=== PATIENT | female | born 1995 | race Caucasian/White ===

== ENCOUNTER 2019-03-07 08:32 | Inpatient (IN) ==
[2019-03-07 08:58] LABS: BILIRUBIN URINE NEGATIVE (NEGATIVE); BLOOD URINE 1+ (NEGATIVE); CLARITY SL. CLOUDY (CLEAR); COLOR AMBER; GLUCOSE URINE NEGATIVE (NEGATIVE); KETONE URINE 3+(Large) mg/dL (NEGATIVE); LEUKOCYTES URINE 1+ (NEGATIVE); NITRITE URINE NEGATIVE (NEGATIVE); PROTEIN URINE 2+(100 mg/dL) mg/dL (NEGATIVE); SP GRAVITY URINE 1.015; UROBILINOGEN URINE 8 mg/dL
[2019-03-07 09:03] LABS: HEMATOCRIT 34.1 % (37.0-47.0); HEMOGLOBIN 11.8 g/dL (12.0-16.0); IMM GRAN# 0.01 X1000 (0.0-0.04); IMM GRAN% 0.1 % (0.0-0.5); LYMPH# 0.45 X1000 (1.2-3.4); LYMPH% 3.6 % (20.5-51.1); MCH 28.8 PG (27-31); MCHC 34.6 g/dL (33-37); MCV 83.2 FL (81-99); MONO# 0.19 X1000 (0.11-0.59); MONO% 1.5 % (1.7-9.3); MPV 11.1 FL (7.4-10.4); NEUT# 11.94 X1000 (1.4-6.5); NEUT% 94.8 % (42.2-75.2); PLT 212 X1000 (130-400); RDW 12.6 % (11.5-14.5); WBC 12.59 X1000 (4.8-10.8)
[2019-03-07 09:03] LABS: URINE BACTERIA 4+ /HFP; URINE CAST NONE SEEN /LPF; URINE CRYSTAL NONE SEEN /HPF; URINE EPITHELIAL CELLS >10 /HPF (<10); URINE RBC <10 /HPF (<10); URINE SOURCE CLEAN CATCH; URINE WBC TNTC /HPF (<10); URINE YEAST NONE SEEN /HPF
[2019-03-07] MEDS ORDERED: ROCEPHIN 1 GM in NS 50 ML IV ONE (09:11)
[2019-03-07] MEDS ORDERED: NS 1,000 ML IV ONE (09:11)
[2019-03-07] MEDS ORDERED: SODIUM CHLORIDE 0.9% INJ ONE (09:15)
[2019-03-07] MEDS ORDERED: TORADOL IV ONE (09:15)
[2019-03-07] MEDS ORDERED: PHENERGAN IV ONE (09:15)
[2019-03-07 09:18] LABS: INR 1.2; PROTIME 15.8 Seconds (11.0-16.0); PTT 34.2 Seconds (22.3-41.8)
[2019-03-07 09:21] LABS: AGAP 17; ALBUMIN 4.5 g/dL (3.5-5.0); ALKALINE PHOSPHATASE 76 U/L (32-104); BUN 8 mg/dL (8-22); CALCIUM 9.1 mg/dL (8.8-10.2); CHLORIDE 92 mmol/L (98-107); CK PROFILE 24 U/L (24-173); COSMO 272; CREATININE 0.8 mg/dL (0.5-0.9); ESTIMATED GFR > 60; GLUCOSE 223 mg/dL (70-104); GOT 17 U/L (10-30); GPT 9 U/L (10-36); LYMPHS 3 % (21-51); POTASSIUM 3.2 mmol/L (3.5-5.1); SEGS 97 % (42-75); SODIUM 133 mmol/L (136-145); TCO2 24 mmol/L (25-35); TOTAL PROTEIN 7.1 g/dL (6.3-8.3)
--- NOTE | 2019-03-07 10:29 | Diag Imaging Result Doc PS360 ---
CT ABD/PELVIS W/IV CONT ONLY - 03/07/2019 INDICATION: abd pain fever COMPARISON: None FINDINGS: There are some faint scattered infiltrate in the lung bases particularly the left lower lobe. Heart size is normal with no pericardial effusion. The liver, gallbladder, spleen, pancreas, adrenals, and kidneys are normal. No bowel obstruction or inflammation. There is a rather large simple right ovarian cyst. This measures 6.3 x 4.7 cm. No free fluid. Urinary bladder, uterus, and rectum are normal. Bones are intact. IMPRESSION: 1. Ill-defined infiltrates in the lung bases bilaterally worse in the left lower lobe. Suggestive of atypical pneumonia. 2. Right ovarian cyst. This exam was performed using automated exposure control, adjustment of mA or kV according to patient size, and/or use of iterative reconstruction technique Electronically signed by Miguel Church 03/07/2019 10:27 AM
--- NOTE | 2019-03-07 10:30 | Diag Imaging Result Doc PS360 ---
CHEST-1 VIEW - 03/07/2019 INDICATION: r/o sepsis COMPARISON: None FINDINGS: There are faint infiltrates in the lung bases better seen on the CT. This is worst in the left lower lobe. Heart size is normal. No pneumothorax or pleural effusion. IMPRESSION: Faint interstitial infiltrates are better seen on the recent CT. Electronically signed by Miguel Church 03/07/2019 10:28 AM
--- NOTE | 2019-03-07 11:26 | PROVIDER DOCUMENTATION ---
This chart was entered by Gregoria Barnes Scribe, acting as scribe for Seth Hamilton CRNP. HPI-Abdominal Pain/GI Problem - General Chief Complaint: SEPSIS ALERT - P Stated Complaint: VOMITING Time Seen by Provider: 03/07/19 09:02 Source: patient Allergies/Adverse Reactions: Patient Allergies Allergy/AdvReac Type Severity Reaction Status Date / Time Penicillins Allergy HIVES Verified 01/25/16 11:26 Home Medications: Home Medication List Medication Instructions Recorded Confirmed Last Taken Type Ibuprofen [Motrin] 800 mg PO Q8H PRN PRN #20 tablet 01/25/16 Unknown Rx Escitalopram Oxalate [Lexapro] 1 tab PO DAILY 03/07/19 03/07/19 Unknown History - History of Present Illness-ABD Nature of Presenting Problems: 23 y/o female presents to ED with abdominal pain, N/V, and R flank pain onset 3 days ago. Pt reports she hurts in periumbilical region before she vomits. Pt denies urinary symptoms. Pt is alert and oriented. Abdominal Pain Onset Location: reports: periumbilical Pain Radiation: reports: no radiation Quality of Pain: reports: sharp Severity in ED: reports: moderate Onset/Duration: reports: 3 days ago Timing: reports: still present Activities at Onset: reports: none Exposure to sick contacts?: No Modifying Factors: worse with: palpation, vomiting Associated Symptoms: reports: nausea, vomiting, other (R flank pain; abdominal pain) Last BM: unsure Dark Stools Present?: reports: none noticed Rectal Bleeding: reports: none Rectal Pain: reports: none Similar Symptoms Previously?: No Recently seen or treated by another doctor?: No Review of Systems - Adult - REVIEW OF SYSTEMS - ADULT Constitutional: denies: chills, fever Eyes: reports: no symptoms reported Ears, Nose, Mouth & Throat: reports: no symptoms reported Cardiovascular: denies: chest pain, palpitations Respiratory: reports: cough. denies: shortness of breath Gastrointestinal: reports: abdominal pain, nausea, vomiting. denies: constipation, diarrhea Genitourinary: reports: flank pain (R). denies: dysuria, frequency, hematuria, incontinence Musculoskeletal: denies: back pain, joint pain Integumentary: reports: no symptoms reported Neurological: denies: dizziness/vertigo, seizure Psychiatric: reports: no symptoms reported Endocrine: reports: no symptoms reported Hematologic/Lymphatic: reports: no symptoms reported Allergic/Immunologic: reports: no symptoms reported All Other Systems: Reviewed and Negative Past History - Adult - PAST MEDICAL HISTORY-ADULT Review of Records: reports: Old Records Reviewed, Nursing Assessment Review, Medications Reviewed Major Childhood Illnesses: reports: denies history Cardiovascular: reports: denies history Respiratory: reports: denies history Gastrointestinal: reports: denies history Obstetrical/Gynecological: reports: denies history Genitourinary: reports: denies history Musculoskeletal: reports: denies history Neurological: reports: denies history Endocrine/Immune: reports: denies history Other Conditions: reports: denies history - PRIOR SURGERIES/PROCEDURES Surgical/Procedure History: reports: tonsillectomy, other (wisdom teeth extractions) - IMMUNIZATION STATUS Childhood Immunizations: See Nurse Assessment Flu Vaccine: See Nurse Assessment - FAMILY HISTORY Family History: reviewed, not pertinent - SOCIAL HISTORY Smoking: less than 1 pack/day Provider spent 3-5 mins advising pt. on dangers of tobacco.: Discussed manners to quit use, and f/u contacts for add'l counseling. Substance Use: none/never Alcohol Use Frequency: occasionally Living Situation: family Physical Exam-General - PHYSICAL EXAM-ADULT Initial Vital Signs Reviewed: Yes (temp 102.3) - CONSTITUTIONAL General Appearance: appears well, alert, mild distress - EYES Eyes: PERRL/EOMI, pink conjunctivae - HEAD, EARS, NOSE, MOUTH & THROAT HENMT: normocephalic/atraumatic, moist mucous membranes, normal ENT inspection - NECK Neck: non-tender, full range of motion - RESPIRATORY Respiratory: chest non-tender, lungs clear, normal breath sounds - CARDIOVASCULAR Cardiovascular: tachycardia - GASTROINTESTINAL (ABDOMEN) Abdominal Exam: normal bowel sounds, soft, tenderness (diffuse) - MUSCULOSKELETAL Back Exam: normal inspection, no vertebral tenderness, CVA tenderness (R) Extremity: normal range of motion, non-tender - SKIN Integumentary: normal color, warm/dry - NEUROLOGIC Neurologic: grossly normal - PSYCHIATRIC Psych/Mental Status: normal mood/affect, normal thought content, normal thought process, oriented x 3 Progress - PLAN OF CARE/RESULTS Progress/Plan/Lab Results: Vital Signs - 8 hr / 08:35 Temperature 102.3 F H Pulse Rate 107 H Respiratory Rate 18 Blood Pressure 105/75 O2 Sat by Pulse Oximetry 95 Laboratory Results - last 24 hr 03/07/19 03/07/19 03/07/19 08:38 08:38 08:55 WBC 12.59 H RBC 4.10 L Hgb 11.8 L Hct 34.1 L MCV 83.2 MCH 28.8 MCHC 34.6 RDW Std Deviation 12.6 Plt Count 212 MPV 11.1 H Immature Gran % (Auto) 0.1 Neut % (Auto) 94.8 H Lymph % (Auto) 3.6 L [place] % (Auto) 1.5 L Eos % (Auto) 0.0 Baso % (Auto) 0.0 Immature Gran # (Auto) 0.01 Neut # (Auto) 11.94 H Lymph # (Auto) 0.45 L [place] # (Auto) 0.19 Eos # (Auto) 0.00 Baso # (Auto) 0.00 Urine Source CLEAN CATCH Urine Color BOO Urine Clarity SL. CLOUDY A Urine pH 5.0 Ur Specific [place]ade 1.015 Urine Protein 2+(100 mg/dL) A Urine Ketones 3+(Large) A Urine Blood 1+ A Urine Nitrite NEGATIVE Urine Bilirubin NEGATIVE Urine Urobilinogen 8 Urine Microscopic RBC <10 Urine WBC 1+ A Urine Microscopic WBC TNTC A Ur Epithelial Cells >10 A Urine Crystals NONE SEEN Urine Bacteria 4+ Urine Casts NONE SEEN Urine Yeast NONE SEEN Urine Glucose NEGATIVE Urine Test NEGATIVE Orders Category Date Time Status Cardiac Monitoring DIRECTED Care 03/07/19 08:41 Active IV Insertion ORDERED Care 03/07/19 08:41 Completed Notify MD of + Sepsis Screen NOW Care 03/07/19 08:41 Active Notify Physician As Ordered Care 03/07/19 08:41 Active CHEST-1 VIEW [RAD] Stat Exams 03/07/19 08:[address] ABD/PELVIS W/IV CONT ONLY [CT] Stat Exams 03/07/19 09:10 Ordered BLOOD CULTURE [BLDCUL] Stat Lab 03/07/19 08:51 Ordered CBC WITH DIFF [HEME] Stat Lab 03/07/19 08:55 Results CK PROFILE [SP CHEM] Stat Lab 03/07/19 08:55 Received COMPREHENSIVE METABOLIC PANEL [CHEM] Stat Lab 03/07/19 08:55 Received LACTATE, PLASMA [CHEM] Lab 03/07/19 11:45 Uncollected LACTATE, PLASMA [CHEM] Lab 03/07/19 14:45 Uncollected LACTATE, PLASMA [CHEM] Q3H Lab 03/07/19 09:00 Received TEST-URINE [PREG] Stat Lab 03/07/19 08:38 Completed PROTIME WITH INR [COAG] Stat Lab 03/07/19 08:55 Received PTT [COAG] Stat Lab 03/07/19 08:55 Received TROPONIN T Stat Lab 03/07/19 08:[address] W/POSS RFLX CULT [URINALYSIS] Stat Lab 03/07/19 08:38 Completed URINE CULTURE [RM] Routine Lab 03/07/19 09:03 Ordered 0.9% Sodium Chloride Inj [Ns] 1,000 ml Med 03/07/19 09:11 Active IV 999 mls/hr CefTRIAXONE [Rocephin] 1 gm Med 03/07/19 09:11 Active 0.9% Sodium Chloride Inj [Ns] 50 ml IV NOW Ketorolac [Toradol] Med 03/07/19 09:15 Once 30 mg IV NOW ONE Promethazine [Phenergan] Med 03/07/19 09:15 Once 25 mg IV NOW ONE Sodium Chloride 0.9% Med 03/07/19 09:15 Once 10 ml INJ NOW ONE Oxygen Device Stat Oth 03/07/19 08:41 Active Result Diagrams: 03/07/19 08:55 03/07/19 08:55 - REASSESSMENT Reassessment #1 Time Reassessed: 10:39 (Pt denies hx of DM. States she has not ate in 3 days. Pt does states she is feeling a little better. Discussed with pt about probable admission, agrees with plan.) - XRAY 1 XRAY Study: Chest Impression: See EMR Report (FINDINGS: There are faint infiltrates in the lung bases better seen on the CT. This is worst in the left lower lobe. Heart size is normal. No pneumothorax or pleural effusion. IMPRESSION: Faint interstitial infiltrates are better seen on the recent CT.) - CT/MRI 1 CT Study: Abdomen, Pelvis Impression: See EMR Report (FINDINGS: There are some faint scattered infiltrate in the lung bases particularly the left lower lobe. Heart size is normal with no pericardial effusion. The liver, gallbladder, spleen, pancreas, adrenals, and kidneys are normal. No bowel obstruction or inflammation. There is a rather large simple right ovarian cyst. This measures 6.3 x 4.7 cm. No free fluid. Urinary bladder, uterus, and rectum are normal. Bones are intact. IMPRESSION: 1. Ill-defined infiltrates in the lung bases bilaterally worse in the left lower lobe. Suggestive of atypical pneumonia. 2. Right ovarian cyst.) - CONSULTS/PCP/HOSPITALIST Notification #1 *Consult/PCP/Hospitalist*: Dr. Perez Time Discussed: 11:24 Reason/Comments: UTI, pneumonia Consult Disposition: Will see in ED, Admit Departure - Departure Date of Disposition Decision: 03/07/19 Time of Disposition Decision: 11:24 DIAGNOSIS: Tobacco use UTI (urinary tract infection) Qualifiers: Urinary tract infection type: site unspecified Hematuria presence: with hematuria Qualified Code(s): N39.0 - Urinary tract infection, site not specified; R31.9 - Hematuria, unspecified Pneumonia Qualifiers: Pneumonia type: due to unspecified organism Laterality: left Lung location: lower lobe of lung Qualified Code(s): J18.1 - Lobar pneumonia, unspecified organism Disposition: ADMITTED INPATIENT 09 Certified Medical Emergency: Emergent Condition: Stable Referrals and Follow-Ups: Garo Peres MD [Primary Care Provider] - Discharge Education: Steps to Quit Smoking, [id number] - Critical Care Note This patient required my direct & personal management of CC.: No Attestation - Physician/ SHERRIE Attestation Patient care was provided by Advanced Practice Provider:: Yes Advanced Practice Provider:: Seth Hamilton Advanced Practice Provider documentation review:: The Mid-level provider documentation, treatment plan and medical decision making was reviewed by the physician who agrees with all treatment and medical decision making by the P. The physician spent face to face time with patient:: No Advanced Practice Provider documentation review:: Supervising physician onsite and consulted in the evaluation and care of this patient. The physician did not have a face to face encounter with the patient. This chart was documented by the indicated scribe, (Gregoria Barnes Scribe) and accurately reflects the services I performed and decisions made by me, Seth Hamilton CRNP, as attested by the provider's signature.
[2019-03-07] MEDS ORDERED: POTASSIUM CHLORIDE 20 MEQ/SWI 20 MEQ/100 ML IVPB IV ONE (12:08)
[2019-03-07 12:34] LABS: HEMOGLOBIN A1C 4.9 % (4.8-6.0)
[2019-03-07] MEDS: NS 1,000 ML IV SCH ×2 (13:24→20:30)
[2019-03-07] MEDS: ZITHROMAX 500 MG/NS 500 MG/250 ML IVPB IV SCH (13:24)
--- NOTE | 2019-03-07 14:33 | HISTORY AND PHYSICAL ---
PRIMARY CARE PHYSICIAN: Dr. Garo Peres. CHIEF COMPLAINT: Abdominal pain, right flank pain, and nausea and vomiting for the past 3 days that had progressively worsened. HISTORY OF PRESENTING ILLNESS: This is a 23-year-old female who presents to [facility] ER with complaints of generalized abdominal pain, nausea, vomiting, and right flank pain that began 3 days ago and progressively worsened. Her workup in the emergency room showed a white blood cell count of 12.59. Potassium was 3.2. Her blood sugar was elevated at 223. States that she has not eaten in several days and has never been diagnosed with diabetes. We did check a hemoglobin A1c and it was 4.9, so it does not appear that she is diabetic. Her urinalysis showed negative nitrite, 1+ white blood cells, 4+ bacteria. We did a chest x-ray that showed faint interstitial infiltrates that are better seen on the recent CT. We did an abdomen and pelvic CT that showed ill-defined infiltrates in the lung bases bilaterally, worse in the left lower lobe, suggestive of atypical pneumonia, and a right ovarian cyst. So she is being admitted for further evaluation and treatment. PAST MEDICAL HISTORY: None. PAST SURGICAL HISTORY: Tonsillectomy. FAMILY HISTORY: Reviewed and noncontributory. SOCIAL HISTORY: She currently lives with family. She smokes a Juul 1 pod every 2 days. Denied any alcohol or illicit drug use. ALLERGIES: Penicillin, benzodiazepine, opioid, and methadone related. HOME MEDICATIONS: She takes Lexapro 20 mg p.o. daily. We will hold her ibuprofen 800 mg p.o. q.8 hours p.r.n. LABORATORY DATA: Showed a white blood cell count of 12.59, hemoglobin 11.8, hematocrit 34.1, platelets 212,000. PT and INR of 15.8 and 1.20. Sodium 133, potassium 4.2, chloride 92, CO2 24, BUN of 8, creatinine 0.8, glucose 223. Again, her hemoglobin A1c was 4.9. Cardiac enzyme was negative. Plasma lactate of 1.1. Urinalysis with negative nitrites, 1+ white blood cells, 4+ bacteria. Urine test was negative. CT of the abdomen and pelvis showed an ill-defined infiltrate in the lung bases bilaterally, worse in the left lower lobe, suggestive of atypical pneumonia, and a right ovarian. Chest x-ray showed faint interstitial infiltrates that are better seen on the recent CT. REVIEW OF SYSTEMS: She has had a subjective fever, chills, body aches. Denied any blurred vision, dizziness, chest pain, coughing, shortness of breath. She has had generalized abdominal pain, right flank pain, nausea, vomiting. Denied any constipation or diarrhea. She has had some mild dysuria with urination. PHYSICAL EXAMINATION: VITAL SIGNS: On arrival she had a temperature of 102.3 degrees, pulse 93, respirations 19, blood pressure 115/76, saturating 95% on room air. Currently, her temperature is down to 98.4. GENERAL: This is a 23-year-old female who is lying in the bed and answers questions appropriately. HENT: Normocephalic, atraumatic. Normal ENT inspection. Oropharynx and nares are clear. EYES: Pupils are equal, round, and reactive to light and accommodation. Extraocular movements are intact. NECK: Normal inspection. Normal range of motion. LUNGS: With decreased breath sounds to bilateral bases. Equal lung expansion and chest wall movement noted. ABDOMEN: Soft. Tenderness to palpation. She did have right CVA tenderness. Bowel sounds are present x4 quadrants. MUSCULOSKELETAL: She had 5/5 strength x4 extremities. NEUROLOGICAL: The cranial nerves 2-12 appear grossly intact. ASSESSMENT: 1. Sepsis. 2. Bilateral lower lobe pneumonia. 3. Urinary tract infection. 4. Mild hypokalemia. 5. Mild leukocytosis. 6. Hyperglycemia without a diagnosis of diabetes with an A1c of 4.9. PLAN: She is being admitted to the medical unit, placed on a diabetic diet, telemetry, O2 per protocol, incentive spirometry, turn, cough and deep breathe q.2 hours. We initially placed her on a diabetic diet but as stated previously, it does not she is diabetic as her hemoglobin A1c was normal, so I will place her on a regular diet. Place on potassium 20 mEq IV x1, normal saline 125 mL an hour, Rocephin 1 gram IV q.24, azithromycin 500 IV q.24. I am going to recheck a CBC and BMP in the a.m. Urine culture is pending and blood cultures x2 are pending. Further orders after seen by attending. Dictated by NORY Parra for Weston Perez MD cc: NORY Parra MD Stephen W. Harbin, MD
--- NOTE | 2019-03-07 16:49 | HISTORY AND PHYSICAL ---
ADDENDUM: Patient seen and examined by myself. Full note dictated and discussed with nurse practitioner. Patient presented to the hospital with nausea, vomiting, and flank pain. We are going to admit her to the hospital and place her on IV fluids and antibiotics. It appears as raghav she has atypical pneumonia on CT. She does have a fever of 102. Further orders as needed. cc: Weston Perez MD
[2019-03-07] MEDS: SODIUM CHLORIDE 0.9% INJ PRN (17:01)
[2019-03-07] MEDS: PHENERGAN IV PRN (17:01)
[2019-03-07] MEDS: TYLENOL PO PRN (18:42)
[2019-03-08] MEDS: PHENERGAN IV PRN ×2 (04:12→11:20)
[2019-03-08] MEDS: NS 1,000 ML IV SCH ×3 (04:16→14:06)
[2019-03-08] MEDS: SODIUM CHLORIDE 0.9% INJ PRN (04:16)
[2019-03-08] MEDS: TYLENOL PO PRN (05:20)
[2019-03-08 06:35] LABS: HEMATOCRIT 27.4 % (37.0-47.0); IMM GRAN# 0.01 X1000 (0.0-0.04); IMM GRAN% 0.1 % (0.0-0.5); LYMPH# 0.28 X1000 (1.2-3.4); LYMPH% 3.6 % (20.5-51.1); MCH 27.8 PG (27-31); MCHC 32.8 g/dL (33-37); MCV 84.6 FL (81-99); MONO# 0.11 X1000 (0.11-0.59); MONO% 1.4 % (1.7-9.3); MPV 11.2 FL (7.4-10.4); NEUT% 94.9 % (42.2-75.2); PLT 170 X1000 (130-400); RBC 3.24 XMIL (4.2-5.4); RDW 12.6 % (11.5-14.5)
[2019-03-08 06:40] LABS: AGAP 12; BUN 5 mg/dL (8-22); CHLORIDE 102 mmol/L (98-107); GLUCOSE 140 mg/dL (70-104); POTASSIUM 3.2 mmol/L (3.5-5.1); SODIUM 137 mmol/L (136-145); TCO2 23 mmol/L (25-35)
[2019-03-08 06:41] LABS: CALCIUM 7.9 mg/dL (8.8-10.2); COSMO 273; CREATININE 0.7 mg/dL (0.5-0.9); ESTIMATED GFR > 60
[2019-03-08 08:28] LABS: ANISOCYTOSIS 1+; BANDS 3 % (0-1); LYMPHS 5 % (21-51); POIKILOCYTOSIS OCCASIONAL; SEGS 92 % (42-75)
[2019-03-08] MEDS ORDERED: LEXAPRO PO SCH (09:00)
[2019-03-08] MEDS ORDERED: ROCEPHIN 1 GM in NS 50 ML IV SCH (10:00)
[2019-03-08] MEDS: ZITHROMAX 500 MG/NS 500 MG/250 ML IVPB IV SCH (13:13)
[2019-03-08] MEDS ORDERED: ZOSTRIX TOP PRN (13:51)
[2019-03-08] MEDS: POTASSIUM CHLORIDE 20 MEQ/SWI 20 MEQ/100 ML IVPB IV SCH ×2 (14:21→15:40)
[2019-03-08] MEDS ORDERED: OFIRMEV 1000 MG/ISOTONIC SOLN 1,000 MG/100 ML BOTTLE IV PRN (14:27)
[2019-03-08 14:52] LABS: ALBUMIN 3.1 g/dL (3.5-5.0); DIRECT BILIRUBIN 0.3 mg/dL (0.00-0.20); TOTAL BILIRUBIN 0.8 mg/dL (0.20-1.00); TOTAL PROTEIN 6.1 g/dL (6.3-8.3)
[2019-03-08 15:32] LABS: UR AMPHETAMINES QUAL NONE DETECTED (NONE DETECT); UR BARBITUATES QUAL NONE DETECTED (NONE DETECT); UR BENZODIAZEPIN QUAL NONE DETECTED (NONE DETECT); UR COCAINE QUAL NONE DETECTED (NONE DETECT); UR METHADONE QUAL NONE DETECTED (NONE DETECT); UR METHAMPHETAMINE QUAL NONE DETECTED (NONE DETECT); UR OPIATES QUAL NONE DETECTED (NONE DETECT); UR OXYCODONE QUAL NONE DETECTED (NONE DETECT); UR PCP QUAL NONE DETECTED (NONE DETECT); UR PROPOXYPHENE QUAL NONE DETECTED (NONE DETECT); UR TCA QUAL NONE DETECTED (NONE DETECT)
[2019-03-08 15:33] LABS: UR CANNABINOIDS QUAL PRESUMPTIVE POSITIVE (NONE DETECT)
[2019-03-08] MEDS ORDERED: PHENERGAN IV PRN (16:06)
[2019-03-08] MEDS ORDERED: SODIUM CHLORIDE 0.9% INJ PRN (16:06)
[2019-03-08] MEDS ORDERED: NS 1,000 ML IV SCH (17:00)
[2019-03-08] MEDS ORDERED: POTASSIUM CHLORIDE 20 MEQ/SWI 20 MEQ/100 ML IVPB IV SCH (18:00)
[2019-03-08] MEDS ORDERED: POTASSIUM CHLORIDE 20 MEQ in NS 1,000 ML IV SCH (18:08)
[2019-03-08] MEDS: NS + KCL 20 MEQ 1,000 ML IV SCH (18:29)
[2019-03-08] MEDS: PROTONIX IV SCH (18:29)
[2019-03-08] MEDS: SODIUM CHLORIDE 0.9% INJ SCH (18:30)
--- NOTE | 2019-03-08 18:39 | PROGRESS NOTE ---
DATE: 03/08/2019 SUBJECTIVE: The patient transferred over to [facility] from [facility] for more evaluation possibly by consultants such as Gastroenterology. The patient had come in with right flank pain and was noted on chest x-rays to have some bilateral lower lung infiltration. She does state she has had a cough for little over a week. It was nonproductive. She has had some fever at [facility] up to 100 to 102 and has been on antibiotics of Rocephin and Zithromax. Urine culture is negative whereas the urine urinalysis was abnormal, consistent with probable contaminant. The patient's urine drug screen is negative except for cannabinoids and she admits to smoking marijuana last about 4 to 5 days ago and these symptoms of nausea and vomiting developed a day or so after that. There had been some consideration by the [facility] team regarding cannabinoid hyperemesis syndrome. She says since she has had the capsaicin P topical ointment applied to her abdomen, her abdomen has been feeling better and she has had improvement in nausea and vomiting the last few hours since transfer from [facility] ER. I have reviewed the entire hospitalization and workup there, which is appropriate and CT abdomen and pelvis revealed ill-defined infiltrates in the lung bases, worse on the left, consistent with atypical pneumonia. Also right ovarian cyst noted. Urine test on admission negative. ASSESSMENT: 1. Bilateral lower lung infiltrates, left greater than right. 2. Pronounced nausea and vomiting. 3. Right flank pain, possibly related to #1. 4. Marijuana usage, rule out cannabinoid hyperemesis syndrome. 5. Persistent fever. 6. Remote history of seizures. 7. Remote history of depression. 8. Hypokalemia. PLAN: We will continue the treatment that has been begun. She has been given a regular diet, currently, and they have made her NPO in the morning. I am going to reassess her in the morning. If she is not doing better, may get GI consultation. HIDA scan has been ordered for tomorrow. We will evaluate that. We note CT did not show any gallstones. Stool studies have been ordered. There has been no history of severe diarrhea. The patient is on IV fluids of normal saline and will add some potassium to that. She also is on the Rocephin and Zithromax. Tylenol p.r.n., Lexapro, capsaicin p.o. 1 minute, Phenergan p.r.n. Lab data reviewed since admission. cc: Garo Peres MD
--- NOTE | 2019-03-08 19:14 | PROGRESS NOTE ---
DATE: 03/08/2019 SUBJECTIVE: Patient still has significant vomiting, although this appears to be more induced vomiting. She notes that she has some nausea and she has been forcing herself to vomit, thinking it would make her feel better. She still had a fever of 102 last night. Denies any chest pains. Still has some shortness of breath. Denies any fevers. OBJECTIVE: Vital Signs: T-max 102 degrees. Otherwise, vital signs stable. She is saturating normally on room air. Pulse 80s. General: Patient is very pleasant. She is in no respiratory distress, although she is still somewhat ill-appearing. HEENT: Normocephalic. Neck: Supple. Cardiovascular: Regular rate. Chest: Relatively clear. No crackles. No wheezing. Abdomen: Soft. Diffusely tender. Positive bowel sounds. Extremities: Moves all extremities. ASSESSMENT: 1. Sepsis, as noted by elevated fever and infection. 2. Bilateral atypical lower lobe pneumonia. 3. Urinary tract infection next. 4. Hyperkalemia. PLAN: Will continue patient in the hospital. At this point, we are going to transfer her to [facility] for GI input given that she has continued abdominal pain and nausea. Further orders as needed. Will continue antibiotics. cc: Weston Perez MD
[2019-03-08] MEDS: ZOSTRIX TOP PRN (20:07)
[2019-03-09] MEDS: ZOSTRIX TOP PRN ×2 (00:21→13:42)
[2019-03-09] MEDS: NS + KCL 20 MEQ 1,000 ML IV SCH ×2 (03:21→15:32)
[2019-03-09] MEDS: OFIRMEV 1000 MG/ISOTONIC SOLN 1,000 MG/100 ML BOTTLE IV PRN ×2 (04:45→17:12)
[2019-03-09 07:26] LABS: HEMATOCRIT 28.5 % (37.0-47.0); HEMOGLOBIN 9.3 g/dL (12.0-16.0); IMM GRAN# 0.02 X1000 (0.0-0.04); IMM GRAN% 0.2 % (0.0-0.5); LYMPH# 0.38 X1000 (1.2-3.4); LYMPH% 4.5 % (20.5-51.1); MCH 27.6 PG (27-31); MCHC 32.6 g/dL (33-37); MCV 84.6 FL (81-99); MONO# 0.13 X1000 (0.11-0.59); MONO% 1.5 % (1.7-9.3); MPV 12.4 FL (7.4-10.4); NEUT% 93.8 % (42.2-75.2); PLT 204 X1000 (130-400); RBC 3.37 XMIL (4.2-5.4); RDW 12.7 % (11.5-14.5); WBC 8.53 X1000 (4.8-10.8)
[2019-03-09 07:57] LABS: AGAP 12; ALBUMIN 3.1 g/dL (3.5-5.0); ALKALINE PHOSPHATASE 62 U/L (32-104); AMYLASE 30 U/L (20-200); BUN 5 mg/dL (8-22); CALCIUM 8.6 mg/dL (8.8-10.2); CHLORIDE 104 mmol/L (98-107); COSMO 270; CREATININE 0.6 mg/dL (0.5-0.9); ESTIMATED GFR > 60; GLUCOSE 115 mg/dL (70-104); GOT 18 U/L (10-30); GPT 13 U/L (10-36); LIPASE 7 U/L (13-60); POTASSIUM 3.4 mmol/L (3.5-5.1); SODIUM 136 mmol/L (136-145); TCO2 20 mmol/L (25-35); TOTAL BILIRUBIN 0.49 mg/dL (0.20-1.00); TOTAL PROTEIN 6.3 g/dL (6.3-8.3)
[2019-03-09 08:18] LABS: BANDS 6 % (0-1); LYMPHS 2 % (21-51); SEGS 92 % (42-75)
[2019-03-09] MEDS ORDERED: VANCOMYCIN IV PER PHARMACY MISC SCH (08:45)
--- NOTE | 2019-03-09 09:59 | Diag Imaging Result Doc PS360 ---
EXAM: HIDA SCAN W/ EJECTION FRACTION INDICATION: N/V/ruq pain TECHNIQUE: 5.3 mCi of technetium 99 Choletec was administered intravenously and images were obtained in usual fashion after administration. COMPARISON: None. FINDINGS: There is normal immediate hepatocellular uptake after administration of the radiotracer. Activity is seen in small bowel beginning at about four minutes post administration. Activity is seen in the gallbladder beginning at about 34 minutes. Liquid fatty meal was then administered orally. The calculated gallbladder ejection fraction is 91%. IMPRESSION: Essentially unremarkable HIDA scan. Electronically signed by Gadiel Dc 03/09/2019 9:57 AM
[2019-03-09] MEDS ORDERED: VANCOMYCIN 1,650 MG in NS 250 ML IV ONE (10:00)
[2019-03-09] MEDS: LEXAPRO PO SCH (10:02)
[2019-03-09] MEDS: ROCEPHIN 1 GM in NS 50 ML IV SCH (10:02)
[2019-03-09] MEDS: ZOFRAN IV PRN ×2 (13:39→22:49)
[2019-03-09] MEDS: ZITHROMAX 500 MG/NS 500 MG/250 ML IVPB IV SCH (15:32)
[2019-03-09] MEDS ORDERED: PHENERGAN IV ONE (17:03)
[2019-03-09] MEDS ORDERED: SODIUM CHLORIDE 0.9% INJ ONE (17:03)
[2019-03-09 17:41] LABS: BLOOD TYPE ARTERIAL; SAMPLE BLOOD
[2019-03-09 17:42] LABS: ALLEN TEST YES; BE -0.1 mmoll (-3.0-3.0); HCO3-(ACT) 24.5 mmoll (20.0-26.0); METHB 0.9 % (0.0-1.5); PCO2(98.6) 29 mmHg (35-45); SAO2 79.6 % (95.0-100.0); THB 9.2 g/dL (11.5-17.4)
[2019-03-09 17:43] LABS: MODALITY CANNULA
[2019-03-09 17:46] LABS: O2HB 77.1 % (95.0-99.0); PO2(98.6) 37 mmHg (60-100)
--- NOTE | 2019-03-09 17:58 | Diag Imaging Result Doc PS360 ---
EXAM: CHEST-2 VIEWS 03/09/2019 HISTORY: Pneumonia TECHNIQUE: AP upright and lateral chest COMMENT: There are diffuse alveolar opacities bilaterally worse in the right lower lobe and left lower lobe. These findings were not present on 03/07/2019. The inspiration is less optimal. IMPRESSION: Pulmonary edema and/or pneumonia. Electronically signed by Christopher Abraham 03/09/2019 5:55 PM
[2019-03-09] MEDS ORDERED: LASIX IV ONE (18:03)
[2019-03-09] MEDS: PROTONIX IV SCH (18:10)
[2019-03-09 18:55] LABS: HEMATOCRIT 28.5 % (37.0-47.0); HEMOGLOBIN 9.4 g/dL (12.0-16.0); LYMPH# 0.26 X1000 (1.2-3.4); LYMPH% 2.8 % (20.5-51.1); MCH 27.8 PG (27-31); MCV 84.3 FL (81-99); MONO# 0.08 X1000 (0.11-0.59); MONO% 0.9 % (1.7-9.3); MPV 11.5 FL (7.4-10.4); NEUT# 8.91 X1000 (1.4-6.5); NEUT% 96.3 % (42.2-75.2); PLT 213 X1000 (130-400); RBC 3.38 XMIL (4.2-5.4); WBC 9.25 X1000 (4.8-10.8)
[2019-03-09 19:20] LABS: AGAP 15; ALB/GLOB RATIO 1.3; ALBUMIN 3.3 g/dL (3.5-5.0); ALKALINE PHOSPHATASE 57 U/L (32-104); BUN 6 mg/dL (8-22); CALCIUM 8.3 mg/dL (8.8-10.2); CHLORIDE 105 mmol/L (98-107); CK PROFILE 24 U/L (24-173); COSMO 277; CREATININE 0.6 mg/dL (0.5-0.9); ESTIMATED GFR > 60; GLUCOSE 105 mg/dL (70-104); GOT 15 U/L (10-30); GPT 13 U/L (10-36); POTASSIUM 3.4 mmol/L (3.5-5.1); SODIUM 140 mmol/L (136-145); TCO2 20 mmol/L (25-35); TOTAL BILIRUBIN 0.48 mg/dL (0.20-1.00); TOTAL PROTEIN 5.8 g/dL (6.3-8.3)
[2019-03-09 19:26] LABS: INR 1.27; PROTIME 16.1 Seconds (11.0-16.0)
[2019-03-09 19:27] LABS: PTT 34.9 Seconds (22.3-41.8)
[2019-03-09 19:28] LABS: LYMPHS 2 % (21-51); SEGS 98 % (42-75)
[2019-03-09] MEDS: POTASSIUM CHLORIDE 20 MEQ/SWI 20 MEQ/100 ML IVPB IV SCH (20:05)
--- NOTE | 2019-03-09 20:15 | PROGRESS NOTE ---
DATE: 03/09/2019 SUBJECTIVE: I came to see the patient earlier in the day. She was down for a HIDA scan. During the day today, she has become more short of breath and had some nausea and vomiting according to her mother. She says her right upper quadrant abdominal pain has improved. She has had no leg pain or swelling. She does admit to smoking Juul, but has not had any of that in the past 4-1/2 to 5 days. OBJECTIVE: T-max 102.9 degrees, pulse 115, blood pressure 121/79, and O2 saturation got as low as 80 on 3 L. Chest x-ray was done abruptly this afternoon and showed pulmonary edema pattern with some infiltrates in the lung bases. Additional lab studies have been done as well, showing a sodium of 140, potassium 3.4, chloride 105, CO2 20, BUN 6, creatinine 0.6, glucose 105, calcium 8.3, total bilirubin 0.48, AST 15, ALT 13, alkaline phosphatase 57, total CK 24, troponin less than 0.01, proBNP 1635, total protein 5.8, albumin 3.3. Plasma lactate 0.8. White count 9.25, hemoglobin 9.4, platelets 213,000, neutrophils 96, lymphocytes 2.8. D-dimer 2.4. PT 16.1, INR 1.27, PTT 34.9. ABGs on 3 L per nasal cannula: PH 7.5, pCO2 29, pO2 37, HC03 24.5, O2 saturation 79.6. HIDA scan with CCK normal. ASSESSMENT: 1. Hypoxia. 2. Pulmonary edema. 3. Bilateral lung infiltrates with fever, consistent with pneumonia bilaterally. 4. Nausea and vomiting. 5. Right flank/right upper quadrant pain, improved. 6. Marijuana usage. 7. Remote history of seizure. 8. Remote history of depression. 9. Hypokalemia. PLAN: 1. She received one dose of Lasix 60 mg intravenously and will replete potassium. 2. Check CT pulmonary angiogram. 3. Check echocardiogram in the morning. 4. Continue intravenous antibiotics of Rocephin and Zithromax with her allergy to penicillin, and we added vancomycin intravenously earlier this morning. 5. Continue oxygen supplementation. 6. Will monitor her here on the floor currently and if she worsens in any way, will move her to the ICU. cc: Garo Peres MD
--- NOTE | 2019-03-09 22:02 | Diag Imaging Result Doc PS360 ---
EXAM: CT ANGIOGRM PULMONARY ARTERIES 03/09/2019 HISTORY: dyspnea/fever/elevated d-dimer TECHNIQUE: This exam was performed using automated exposure control, adjustment of mA or kV according to patient size, and/or use of iterative reconstruction technique. COMMENT: There are no previous studies available for comparison. 3-D MIPS were performed. There are no filling defects in the pulmonary arteries. There is no evidence of significant adenopathy. There is patchy alveolar opacity throughout both lungs particularly in the lower lobes. There are bilateral pleural effusions. The regional skeleton is intact. IMPRESSION: Pulmonary edema and/or pneumonia. Bilateral pleural effusions. Electronically signed by Christopher Abraham 03/09/2019 10:00 PM
[2019-03-09] MEDS: VANCOMYCIN 1,250 MG in NS 250 ML IV SCH (23:02)
[2019-03-09] MEDS: TYLENOL PO PRN (23:14)
[2019-03-10] MEDS: POTASSIUM CHLORIDE 20 MEQ/SWI 20 MEQ/100 ML IVPB IV SCH (01:46)
[2019-03-10] MEDS: ZOFRAN IV PRN ×3 (02:59→18:21)
[2019-03-10 05:10] LABS: ALLEN TEST YES; BE 6.1 mmoll (-3.0-3.0); BLOOD TYPE ARTERIAL; HCO3-(ACT) 29.6 mmoll (20.0-26.0); METHB 0.7 % (0.0-1.5); O2(CT) 12.5 mL/dL (15.0-23.0); O2HB 92.3 % (95.0-99.0); PCO2(98.6) 37 mmHg (35-45); PO2(98.6) 56 mmHg (60-100); SAMPLE BLOOD; SAO2 95.5 % (95.0-100.0); THB 9.6 g/dL (11.5-17.4); pH(98.6) 7.51 (7.35-7.45)
[2019-03-10 05:11] LABS: MODALITY ROOM AIR
--- NOTE | 2019-03-10 07:39 | Diag Imaging Result Doc PS360 ---
CHEST-2 VIEWS - 03/10/2019 INDICATION: Fever COMPARISON: 03/09/2019 FINDINGS: There are stable extensive reticulonodular infiltrates bilaterally. There are trace bilateral pleural effusions. Heart size is normal. IMPRESSION: Trace bilateral pleural effusions. Extensive atypical infiltrates bilaterally. Electronically signed by Miguel Church 03/10/2019 7:37 AM
[2019-03-10] MEDS ORDERED: LASIX IV ONE (08:17)
[2019-03-10] MEDS ORDERED: KLOR-CON PO ONE ×2 (08:22→17:01)
[2019-03-10] MEDS ORDERED: NS NEB INH SCH (08:30)
--- NOTE | 2019-03-10 08:48 | PROGRESS NOTE ---
DATE: 03/10/2019 SUBJECTIVE: The patient continues to have some fairly high fevers off and on mainly during the daytime. She had none overnight, but had some nausea and vomiting around 5 a.m. this morning. She denies particular abdominal pain. Had 1 slightly loose bowel movement. She feels better this morning than she has she states. On extensive questioning, she says she has been using pot by cartridge. She is using a Vape apparatus. She denies any other drug usage. Says she has been clean from drugs for the past 3 years, other than pot. OBJECTIVE: Vital Signs: T-max 102.9, T-current 98.9, pulse 82, respirations 18, blood pressure 111/68, O2 saturation 95% on mask. General: She is lying flat and appears comfortable with breathing. Skin: No rashes, tattoos noted. HEENT: PERRL, EOMI. Sclerae clear. Neck: No LA. No JVD. CV: RRR without murmur. Lungs: Fairly clear to auscultation. Abdomen: Soft, nontender, nondistended. Extremities: No calf tenderness, cords or edema. Neuro: Cranial nerves 2-12 are intact. No focal deficits. LABORATORY DATA: From yesterday evening notes white count 9.2, hemoglobin 9.4, platelets 213, 96% neutrophils. CMP yesterday evening was normal, with the exception of potassium of 3.4. ProBNP was 1635. D-dimer was elevated at 2.4. DIAGNOSTIC DATA: Chest x-ray this morning reveals stable extensive reticulonodular infiltrates bilaterally. Trace bilateral pleural effusions. Heart size normal. CT pulmonary angiogram done last evening reveals pulmonary edema and/or pneumonia with bilateral pleural effusions. She received Lasix 60 mg after that study and seemed to see improvement. ASSESSMENT: 1. Hypoxia. 2. Pulmonary edema. 3. Bilateral atypical lung infiltrates with fever. 4. Nausea and vomiting. 5. Marijuana usage via Vape. 6. Slightly loose bowel movements. 7. Remote history of seizure disorder. 8. Remote history of depression. 9. Mild hypokalemia. 10. History of drug abuse. PLAN: We will continue Lasix 40 mg IV x1 dose. Continue triple antibiotic treatment with Rocephin, Zithromax and vancomycin. We will check stool studies which have been ordered, but not collected to this point. Will check Legionella antigen via urine and check chlamydia by NICKY AT. We will check echocardiogram. Add Xopenex nebulizer treatments. We will ask Dr. Foster, Infectious Disease, to see the patient in consultation. I have counseled the patient to stop marijuana usage. cc: Garo Peres MD
[2019-03-10] MEDS: LEXAPRO PO SCH (08:53)
[2019-03-10] MEDS: ROCEPHIN 1 GM in NS 50 ML IV SCH ×2 (08:55→09:13)
[2019-03-10 09:23] LABS: URINE SOURCE CLEAN CATCH
[2019-03-10 09:31] LABS: BILIRUBIN URINE NEGATIVE (NEGATIVE); BLOOD URINE MODERATE (NEGATIVE); COLOR YELLOW; GLUCOSE URINE NEGATIVE (NEGATIVE); KETONE URINE TRACE mg/dL (NEGATIVE); LEUKOCYTES URINE NEGATIVE (NEGATIVE); NITRITE URINE NEGATIVE (NEGATIVE); PH URINE 6.5; PROTEIN URINE 50 mg/dL (NEGATIVE); SP GRAVITY URINE 1.018; TURBIDITY URINE HAZY (CLEAR); UROBILINOGEN URINE NORMAL (NORMAL)
[2019-03-10] MEDS: VANCOMYCIN 1,250 MG in NS 250 ML IV SCH (10:00)
[2019-03-10 10:12] LABS: UR EPITHELIAL CELLS <10 /HPF (<10); URINE BACTERIA NEGATIVE /HPF; URINE RBC <10 /HPF (<10); URINE WBC <10 /HPF (<10)
[2019-03-10 10:13] LABS: URINE YEAST NONE SEEN
[2019-03-10] MEDS: XOPENEX NEB INH SCH ×4 (12:02→23:24)
[2019-03-10] MEDS: ZITHROMAX 500 MG/NS 500 MG/250 ML IVPB IV SCH (13:09)
[2019-03-10 14:19] LABS: EOS# 0.01 X1000 (0.0-0.7); EOS% 0.1 % (0.0-10.0); HEMOGLOBIN 9.5 g/dL (12.0-16.0); LYMPH# 0.37 X1000 (1.2-3.4); LYMPH% 4.5 % (20.5-51.1); MCH 27.7 PG (27-31); MCHC 32.8 g/dL (33-37); MCV 84.5 FL (81-99); MONO# 0.08 X1000 (0.11-0.59); MPV 11.2 FL (7.4-10.4); NEUT# 7.69 X1000 (1.4-6.5); NEUT% 94.4 % (42.2-75.2); PLT 267 X1000 (130-400); RBC 3.43 XMIL (4.2-5.4); RDW 12.8 % (11.5-14.5); WBC 8.15 X1000 (4.8-10.8)
[2019-03-10 14:22] LABS: AGAP 14; ALBUMIN 3.2 g/dL (3.5-5.0); ALKALINE PHOSPHATASE 58 U/L (32-104); BUN 5 mg/dL (8-22); CALCIUM 8.7 mg/dL (8.8-10.2); CHLORIDE 95 mmol/L (98-107); COSMO 272; CREATININE 0.6 mg/dL (0.5-0.9); ESTIMATED GFR > 60; GLUCOSE 122 mg/dL (70-104); GOT 16 U/L (10-30); GPT 13 U/L (10-36); POTASSIUM 2.9 mmol/L (3.5-5.1); SODIUM 137 mmol/L (136-145); TCO2 28 mmol/L (25-35); TOTAL BILIRUBIN 0.31 mg/dL (0.20-1.00); TOTAL PROTEIN 6.5 g/dL (6.3-8.3)
--- NOTE | 2019-03-10 14:57 | INFECTIOUS DISEASE CONSULT REP ---
DATE: 03/10/2019 CONCLUSION: 1. The patient is admitted the hospital with what appears to be a bilateral pneumonia. 2. 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 3. It appears to me that the patient has oral candidiasis. RECOMMENDATIONS: I agree with treating the patient with the current antibiotic regimen consisting of azithromycin, Rocephin, and vancomycin. I have also requested that the patient have immunoglobulin levels drawn. I suggest starting Clinimix. I am going to start the patient on nystatin swish and swallow, and also I am going to get an HIV antibody test and a hepatitis profile. DISCUSSION: The patient tells me that approximately 6 days ago she started having back pain, vomiting, and fever. She also was coughing, and she felt short of breath. She has also had diarrhea and general body aching. Overall, since her illness started, she has improved. DIAGNOSTIC STUDIES: The patient's CBC shows a white count of 9250, hemoglobin 9.4, and platelet count 213,000. Gases show a pH of 7.51, a PO2 of 56, and a pCO2 of 37. The creatinine is 0.6, GFR is greater than 60. Liver function studies are normal. Urinalysis showed no white cells or bacteria. Blood cultures are negative. Urine culture was mixed. Chest x-ray shows bilateral nodular infiltrates. CT angiogram shows bilateral pneumonia and pleural effusions. The patient's drug screen was positive for marijuana. OBSTETRICAL/GYNECOLOGICAL HISTORY: Patient has never been . Her last menstrual period is now. REVIEW OF SYSTEMS: Eyes and Ears: She can see and hear okay. Neck: Not stiff. Respiratory: See Present Illness. Gastrointestinal: See Present Illness. Genitourinary: The patient does not have dysuria. Musculoskeletal: She does have low back pain. Neurological: Patient does not have seizures. She has not lost motor or sensory function. PREVIOUS HOSPITALIZATION AND OPERATIONS: As a young child, she was admitted as having a rotavirus infection. She has had a tonsillectomy and extraction of her wisdom teeth. MEDICAL DISEASES: Negative for diabetes mellitus, hypertension, and myocardial infarction. She does use marijuana frequently. INFECTIOUS DISEASE HISTORY: Negative for pneumonia and UTI. FAMILY HISTORY: Positive for diabetes mellitus, hypertension, myocardial infarction, stroke, and cancer. SOCIAL HISTORY: [place] She lives in between her mother and her (what she called) elijah. She does use a JUUL. She also drinks alcoholic beverages. She does smoke marijuana. 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 ALLERGIES: The patient has as an allergy to penicillin manifested by urticaria, but she currently is on Rocephin, and she is tolerating it well. She also is allergic to benzodiazepines and opioids MEDICATIONS: The medications taken at home include Lexapro and Motrin. PHYSICAL EXAMINATION: Vital Signs: Temperature maximum was 102.4 and currently it is 99.7, pulse 84, respirations 16, blood pressure 107/67. General: This is an ill-appearing young female. She is in no acute distress. Head, Eyes, Ears, Nose, and Throat: She can hear my spoken words and see near objects. She has a white and green discoloration of her tongue. She can hear my spoken words and see near objects. Neck: No meningismus. Lungs: Clear on the right side. There were rales on the left side. Cardiovascular: Heart rate is regular. Abdomen: Soft and nontender. Neurologic: The patient is awake. She can move her extremities. There is no tremor. Her memory as regarding her medical history was good. Thank you for the consult. cc: MD Garo Argueta MD MTDD
[2019-03-10 15:49] LABS: EOS 1 % (1-10); LYMPHS 4 % (21-51); MONO 2 % (1-9); SEGS 93 % (42-75)
[2019-03-10] MEDS: CLINIMIX E 4.25%-5% SOLUTION 1,000 ML IV SCH (18:04)
[2019-03-10] MEDS: MYCOSTATIN SUSP PO SCH ×2 (18:05→20:35)
[2019-03-10] MEDS: SODIUM CHLORIDE 0.9% INJ SCH (18:05)
[2019-03-10] MEDS: PROTONIX IV SCH (18:05)
[2019-03-10] MEDS: TYLENOL PO PRN (20:35)
--- NOTE | 2019-03-10 20:37 | ECHO REPORT ---
ORDER DATE: 03/10/2019 INDICATION: A 23-year-old female with fever, dyspnea, possible endocarditis. M-MODE MEASUREMENTS: Left ventricle end diastole: 4.4. Left ventricle end systole: 2.8. Posterior wall: 0.8. Interventricular septum: 0.7. Left atrium: 2.2. Aortic diameter: 3.2. SUMMARY OF 2-DIMENSIONAL IMAGIN. Left ventricular function is normal. Ejection fraction is estimated at 60% to 65%. There is no wall motion abnormality noted. 2. The right ventricle appears to be normal. 3. The atria appear to be normal. 4. There is no pericardial effusion. 5. The mitral valve is grossly normal. Color flow mapping unremarkable. 6. Pulsed wave Doppler of mitral inflow is normal. 7. Tissue Doppler of septal and lateral mitral annulus is normal. 8. There is no diastolic dysfunction. 9. The tricuspid valve is normal. Color flow mapping unremarkable. 10.Pulmonary pressure is normal. 11.The pulmonic valve is unremarkable. 12.The aortic valve has 3 cusps. They open normally. Color flow mapping unremarkable. 13.There is no evidence. No thrombus. SUMMARY: This study appears to be grossly within normal limits. The study was somewhat difficult. The patient's windows were not optimal; however, there is no obvious abnormality identified. Clinical correlation recommended. cc: MD Garo Kam MD
[2019-03-10 22:29] LABS: HIV ANTIBODY SCREEN SEE COMMENTS
[2019-03-11] MEDS: ZOFRAN IV PRN ×4 (01:14→20:25)
[2019-03-11] MEDS: VANCOMYCIN 1,250 MG in NS 250 ML IV SCH ×2 (01:14→20:14)
[2019-03-11] MEDS: XOPENEX NEB INH SCH ×6 (05:11→23:32)
[2019-03-11] MEDS: CLINIMIX E 4.25%-5% SOLUTION 1,000 ML IV SCH ×2 (05:20→16:00)
[2019-03-11 06:57] LABS: EOS# 0.02 X1000 (0.0-0.7); EOS% 0.3 % (0.0-10.0); HEMOGLOBIN 8.8 g/dL (12.0-16.0); LYMPH# 0.25 X1000 (1.2-3.4); LYMPH% 3.8 % (20.5-51.1); MCH 27.3 PG (27-31); MCHC 32.6 g/dL (33-37); MCV 83.9 FL (81-99); MONO# 0.07 X1000 (0.11-0.59); MONO% 1.1 % (1.7-9.3); MPV 11.3 FL (7.4-10.4); NEUT% 94.8 % (42.2-75.2); PLT 258 X1000 (130-400); RBC 3.22 XMIL (4.2-5.4); RDW 12.7 % (11.5-14.5); WBC 6.54 X1000 (4.8-10.8)
[2019-03-11 07:14] LABS: AGAP 12; BUN 6 mg/dL (8-22); CHLORIDE 100 mmol/L (98-107); COSMO 279; CREATININE 0.6 mg/dL (0.5-0.9); ESTIMATED GFR > 60; GLUCOSE 159 mg/dL (70-104); MAGNESIUM 1.7 mg/dL (1.5-2.7); POTASSIUM 3.5 mmol/L (3.5-5.1); SODIUM 139 mmol/L (136-145); TCO2 27 mmol/L (25-35)
--- NOTE | 2019-03-11 07:29 | Diag Imaging Result Doc PS360 ---
EXAM: CHEST-2 VIEWS 03/11/2019 HISTORY: hypoxia TECHNIQUE: PA and lateral chest COMMENT: There is a right pleural effusion. This has diminished slightly since 03/10/2019. The pleural fluid collection seen on the previous study of 03/10/2019 on the left has diminished. There is improvement in the alveolar opacities in the lung bases. There is still extensive interstitial opacity throughout both lungs. IMPRESSION: Improving pulmonary edema and/or pneumonia. Improving pleural effusions. Electronically signed by Christopher Abraham 03/11/2019 7:26 AM
[2019-03-11 07:37] LABS: LYMPHS 5 % (21-51); SEGS 95 % (42-75)
[2019-03-11] MEDS ORDERED: KLOR-CON PO ONE (08:21)
[2019-03-11] MEDS ORDERED: LASIX PO ONE (08:21)
--- NOTE | 2019-03-11 08:44 | PROGRESS NOTE ---
DATE: 03/11/2019 SUBJECTIVE: Patient says she is breathing better and she has had no nausea or vomiting in the past 24 hours. She still does not have any appetite. OBJECTIVE: T-max 100.9 degrees, pulse 82, respirations 20, blood pressure 113/72, O2 saturation on a Venturi mask is 100%. CV: RRR without murmur. Lungs: CTA. Abdomen: Soft, nontender, nondistended. Extremities: No calf tenderness, cords, or edema. Neurologic: Nonfocal. Echocardiogram normal. HIV testing negative. White count 6.5, hemoglobin 8.8, platelets 258,000. Sodium 139, potassium 3.5, chloride 100, CO2 of 27, BUN 6, creatinine 0.6, glucose 159, calcium 8.0, magnesium 1.7. Blood cultures, 4 sets and all remain negative. Urine culture, mixed mali. Immunoglobulins show a low IgA level at 61, low IgG level at 518, normal IgM level at 87. Chest x- ray today reveals improving pulmonary edema and/or pneumonia, improving pleural effusions. ASSESSMENT: 1. Hypoxia, improving. 2. Pulmonary edema, improved. 3. Bilateral atypical lung infiltrates with fever, consistent with atypical pneumonia. 4. Nausea and vomiting, resolved. 5. Marijuana usage via vape. 6. Remote history of drug abuse. 7. Remote history of seizure x1, possibly related to benzodiazepine withdrawal years ago. 8. History of depression. 9. Hypokalemia, resolved after repletion. 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 PLAN: We will give her oral Lasix today and potassium to go with that. Continue Rocephin, Zithromax, vancomycin. We will get her up in a chair twice a day, try to work on her nutrition. She is going to try to eat as much as she can. We started Clinimix yesterday. Dr. Foster will address her immunoglobulin status. cc: Garo Peres MD
[2019-03-11] MEDS: LEXAPRO PO SCH (08:46)
[2019-03-11] MEDS: MYCOSTATIN SUSP PO SCH ×4 (08:47→20:07)
[2019-03-11] MEDS: ROCEPHIN 1 GM in NS 50 ML IV SCH (08:47)
[2019-03-11] MEDS: ZITHROMAX 500 MG/NS 500 MG/250 ML IVPB IV SCH (12:40)
[2019-03-11 12:44] LABS: HEPATITIS PROFILE ACUTE SEE COMMENTS
[2019-03-11] MEDS ORDERED: GAMUNEX-C 10% IV ONE (13:00)
--- NOTE | 2019-03-11 15:49 | INFECTIOUS DISEASE PROGRESS NO ---
DATE: 03/11/2019 PRESENT ILLNESS: The patient has bilateral pulmonary infiltrates. I think she does have pneumonia, although some of the infiltrates could be due also to pulmonary venous congestion. In any event, the chest x-ray looks better today. The patient has an immunoglobulin deficiency. Her IgG is 518 and her IgA is 61, both of those are less than normal. MEDICATIONS: The patient is on day 2 of a combination of Rocephin, azithromycin, vancomycin, and nystatin swish and swallow. PHYSICAL EXAMINATION: Vital Signs: Temperature earlier was 101, now it is 98.8, pulse 81, respirations 20, blood pressure 106/55. General: The patient looks much better and she says she is feeling better. Head, eyes, ears, nose, and throat: She can hear my spoken words and see near objects. The patient's tongue has less of a white coating now. Neck: No pain with movement. Lungs: Clear to auscultation. Cardiovascular: Regular heart rate. Abdomen: Soft and nontender. Neurologic: The patient is awake. She can move her extremities. There is no tremor. LAB AND X-RAY: As mentioned above, the chest x-ray is improving. The IgG was 518. The IgA was 61. HIV antibodies were nonreactive. Repeat blood cultures are sterile. CBC shows a white count of 6,540, hemoglobin 8.8, and platelet count of 258,000. Creatinine is 0.6 and the GFR is greater than 60. ASSESSMENT AND PLAN: The patient appears to have pneumonia. My plan would be to continue her current antibiotics. The patient's immunoglobulin deficiency may be contributing to her illness or it may be that the patient got ill first and then her body is not making as much immunoglobulin as it normally does. In any event, I am going to give her an infusion of IVIG. This should bring up the IgG level. However, there is not any product that we can give the patient that will increase the IgA immunoglobulin. COMORBIDITIES: The patient does use a Juul. The patient also uses marijuana. cc: MD Garo Argueta MD
[2019-03-11] MEDS: PROTONIX IV SCH (20:07)
[2019-03-12] MEDS: CLINIMIX E 4.25%-5% SOLUTION 1,000 ML IV SCH ×3 (00:19→21:25)
[2019-03-12] MEDS: TYLENOL PO PRN ×2 (00:38→07:40)
[2019-03-12] MEDS: XOPENEX NEB INH SCH ×7 (04:05→23:54)
[2019-03-12 06:19] LABS: BASO# 0.01 X1000 (0.0-0.2); BASO% 0.2 % (0.0-0.8); EOS# 0.12 X1000 (0.0-0.7); HEMATOCRIT 30.3 % (37.0-47.0); HEMOGLOBIN 9.9 g/dL (12.0-16.0); IMM GRAN# 0.03 X1000 (0.0-0.04); IMM GRAN% 0.5 % (0.0-0.5); LYMPH% 8.2 % (20.5-51.1); MCH 27.6 PG (27-31); MCHC 32.7 g/dL (33-37); MCV 84.4 FL (81-99); MONO# 0.06 X1000 (0.11-0.59); MPV 10.9 FL (7.4-10.4); NEUT# 5.36 X1000 (1.4-6.5); NEUT% 88.1 % (42.2-75.2); PLT 349 X1000 (130-400); RBC 3.59 XMIL (4.2-5.4); WBC 6.08 X1000 (4.8-10.8)
[2019-03-12 06:37] LABS: AGAP 13; BUN 9 mg/dL (8-22); CHLORIDE 98 mmol/L (98-107); COSMO 277; CREATININE 0.6 mg/dL (0.5-0.9); ESTIMATED GFR > 60; GLUCOSE 121 mg/dL (70-104); POTASSIUM 3.3 mmol/L (3.5-5.1); SODIUM 139 mmol/L (136-145); TCO2 28 mmol/L (25-35)
[2019-03-12 06:38] LABS: CALCIUM 9.4 mg/dL (8.8-10.2)
[2019-03-12 06:46] LABS: LYMPHS 8 % (21-51); MONO 6 % (1-9); SEGS 86 % (42-75)
[2019-03-12] MEDS: ZOFRAN IV PRN ×4 (07:43→20:18)
--- NOTE | 2019-03-12 08:10 | Diag Imaging Result Doc PS360 ---
CHEST-2 VIEWS - 03/12/2019 INDICATION: hypoxia COMPARISON: 03/11/2019 FINDINGS: There has been resolution of the small pleural effusions. There is decrease in the diffuse reticulonodular infiltrates bilaterally. Heart size remains normal. Pulmonary vascularity is normal. IMPRESSION: Improvement from prior. Electronically signed by Miguel Church 03/12/2019 8:08 AM
[2019-03-12] MEDS ORDERED: KLOR-CON PO ONE (08:16)
[2019-03-12] MEDS: MYCOSTATIN SUSP PO SCH ×4 (08:21→20:18)
[2019-03-12] MEDS: LEXAPRO PO SCH (08:21)
[2019-03-12] MEDS: VANCOMYCIN 1,250 MG in NS 250 ML IV SCH ×2 (08:22→21:34)
[2019-03-12] MEDS: ROCEPHIN 1 GM in NS 50 ML IV SCH (12:45)
--- NOTE | 2019-03-12 12:58 | INFECTIOUS DISEASE PROGRESS NO ---
DATE: 03/12/2019 PRESENT ILLNESS: The patient has bilateral pneumonia. She also has an immunoglobulin deficiency and oral candidiasis. MEDICATIONS: This is day 3 of treatment with Rocephin, azithromycin, vancomycin, and nystatin swish and swallow. PHYSICAL EXAMINATION: Vital Signs: Temperature was 102 degrees, now it is down to 100, pulse 80, respirations 18, blood pressure 120/70. General: The patient looks much better than she has previously. She is moving around the room more. She is smiling, but her appetite still is not good. Head/eyes/ears/nose/throat: She can hear my spoken words and see near objects. She still does have some white coating on her tongue. Neck: She does not have any pain when she moves her neck. Lungs: Clear to auscultation. Cardiovascular: Regular heart rate. Abdomen: Soft and nontender. Neurologic: The patient is alert. She is able to ambulate without difficulty. LAB AND X-RAY: CBC shows a white count of 6080, hemoglobin 9.9, platelet count 349,000, creatinine is 0.6, GFR is greater than 60. The patient's chest x-ray for today shows a decrease in the patient's diffuse reticular nodular infiltrates. ASSESSMENT AND PLAN: The patient's pneumonia is getting better. I think we should continue with her current antibiotic regimen over the weekend. I talked to the patient about improving her nutrition because she is just not eating. We settled on having the patient at each meal have Ensure mixed with strawberry ice cream. COMORBIDITIES: The patient does use a Juul and she also uses marijuana. cc: MD Garo Argueta MD
[2019-03-12] MEDS: ZITHROMAX 500 MG/NS 500 MG/250 ML IVPB IV SCH (14:03)
--- NOTE | 2019-03-12 17:57 | PROGRESS NOTE ---
DATE: 03/12/2019 SUBJECTIVE: Patient is still having some nausea. No vomiting. She says she feels the best she did today that she has in several days. She still has poor appetite and is trying to eat some fruit. Nothing else seems appealing. OBJECTIVE: Temperature maximum 101.8 degrees at midnight, pulse 74, respirations 22, blood pressure 91/49, O2 saturation on room air 100%.Cardiovascular: RRR. No murmur. Lungs: Generally CTA. Neck: No LA. Oropharynx: No redness. No major white patches in her mouth. Back: No CVA tenderness. Abdomen: Soft, NT, ND. No mass. No HSM. Extremities: No calf tenderness, cords, or edema. Neurologic: Cranial nerves are intact. No focal deficits. DIAGNOSTIC STUDIES: White count 6.08, hemoglobin 9.9, platelets 349,000, neutrophils 88%. Sodium 139, potassium 3.3, chloride 98, CO2 of 28, BUN 9, creatinine 0.6, calcium 9.4. Hepatitis panel negative. Urine for chlamydia and GC negative. Urine Legionella negative. HIV 1 and 2 antibody screen negative. ASSESSMENT: 1. Pneumonia. 2. Immunoglobulin deficiency, having received immunoglobulin per Dr. Foster. 3. Oral candidiasis, improving. 4. Remote history of drug abuse. 5. Marijuana usage via vape. 6. Nausea and vomiting, improving. 7. Mild hypokalemia. PLAN: Potassium was repleted additionally this morning. We are leaving her off Lasix now, as she appears stable in regard to fluid status. Continue IV antibiotics of Rocephin, Zithromax, vancomycin, and she is on nystatin per Dr. Foster, and he has given her immunoglobulin. If ongoing nausea persists and poor appetite, may need Gastroenterology consult. Otherwise, the patient has been on IV PPI, and we will continue that. We will continue ambulation and nebulizer treatments and Clinimix. She also will be given some Ensure shakes, which we had discussed. Expect her to be here through the weekend, and hopefully discharge early next week if the patient continues to slowly improve. cc: Garo Peres MD
[2019-03-12] MEDS: SODIUM CHLORIDE 0.9% INJ SCH (18:06)
[2019-03-12] MEDS: PROTONIX IV SCH (18:06)
[2019-03-13] MEDS: XOPENEX NEB INH SCH ×6 (03:48→22:40)
[2019-03-13] MEDS: CLINIMIX E 4.25%-5% SOLUTION 1,000 ML IV SCH ×2 (05:15→14:46)
[2019-03-13] MEDS: ZOFRAN IV PRN (05:16)
[2019-03-13] MEDS: VANCOMYCIN 1,250 MG in NS 250 ML IV SCH ×2 (09:22→20:34)
[2019-03-13] MEDS: ROCEPHIN 1 GM in NS 50 ML IV SCH (09:23)
[2019-03-13] MEDS: LEXAPRO PO SCH (09:25)
[2019-03-13] MEDS: MYCOSTATIN SUSP PO SCH ×4 (09:25→20:34)
[2019-03-13] MEDS: ZITHROMAX 500 MG/NS 500 MG/250 ML IVPB IV SCH (13:11)
--- NOTE | 2019-03-13 13:32 | PROGRESS NOTE ---
DATE: 03/13/2019 VITAL SIGNS: Stable with temperature 98.4 degrees, heart rate 73, respirations 16, blood pressure 99/57. O2 saturation on room air 100%. LABORATORY: Immunoglobulins G, A and reveal decreased levels of DNA. Chlamydia study, as well as HIV and hepatitis were negative. SUBJECTIVE: She is improving on her current medicines. Last chest x-ray yesterday showed improvement. The patient is advised against Vaping and against marijuana. She is ready to quit. PLAN: Mycoplasma titer is ordered. If she continues to improve, she most likely will be able to go home Friday. cc: MD Garo Eden MD
[2019-03-13] MEDS: PROTONIX IV SCH (18:37)
[2019-03-14] MEDS: XOPENEX NEB INH SCH ×3 (03:00→11:23)
[2019-03-14] MEDS: CLINIMIX E 4.25%-5% SOLUTION 1,000 ML IV SCH (04:32)
[2019-03-14 07:03] VITALS: BP 108/65
[2019-03-14] MEDS: MYCOSTATIN SUSP PO SCH (08:23)
[2019-03-14] MEDS: LEXAPRO PO SCH (08:24)
--- NOTE | 2019-03-14 15:17 | DISCHARGE SUMMARY ---
ADMISSION DATE: 03/07/2019 DISCHARGE DATE: 03/14/2019 FINAL DIAGNOSES: Bilateral pneumonia, community-acquired, abdominal pain, acute gastritis, history of depression. HISTORY: This is first recent [facility] admission for this 23-year-old white female who presented to [facility] on the and evaluation revealed fever with temperature up to 102. [place] blood [place] was [address]. Blood sugar was elevated at 223. There was no history of diabetes and A1c was 4.9. Urinalysis showed 4+ bacteria. Chest x-ray showed faint interstitial infiltrates, better seen on CT scan. She is transferred to [facility] since Dr. Peres was her usual physician. She was placed on intravenous Zithromax and ceftriaxone. Cultures were done and Dr. Stephane Foster was consulted. Blood cultures and urine cultures revealed no growth. Immunoglobulins were tested and both IgA and IgG were found to be low. IgM was normal. Chlamydia titer, hepatitis panel, HIV antibodies and Legionella titers were all normal. Mycoplasma study, antibody, was done and results are pending. Initial laboratory hemoglobin 11.8, hematocrit 12,600 with 95% neutrophils. Sodium 133, potassium 3.2, BUN 8, creatinine 0.8, glucose 223. A1c 4.9, total bilirubin 1.2, AST 17, ALT 9. Troponin less than 0.01. Total CK 24. Plasma lactate 1.1. HOSPITAL COURSE: She slowly improved over several days. Initially, she was in intensive care. She has been on the floor for several days and this morning is walking and feeling well. Lungs are clear to auscultation. Last chest x-ray was 823 and showed improvement with resolution of small pleural effusions. There was decrease in diffuse reticulonodular infiltrate bilaterally. Pulmonary vasculature was normal. 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 She became ill after vaping some marijuana. There was possibility of contributing etiology to her pneumonia. PLAN: Discharge home on Zithromax with follow up in Dr. Peres's office the end of this week. = cc: MD Garo Eden MD
[2019-03-15] MEDS ORDERED: ZITHROMAX PO SCH (09:00)
[2019-03-16 14:10] LABS: MYCOPLASMA PNEUMONIAE AB SEE COMMENTS
== END 2019-03-14 11:28 | disposition home or self-care (01) | DRG 871 ==
LOC: P.ED 08:32 → SUATTDRO 11:59 → P.MEDSURG 11:59 → 3N 03-08 16:03
PROVIDERS: ADMIT Family Medicine; ATTEND Family Medicine